=== PATIENT | male | born 1965 | race Caucasian/White ===

== ENCOUNTER 2016-07-06 16:40 | Emergency (ER) | payer OTHER ==
[~2016-07-06] VITALS: Ht 157.5 cm; Wt 54.0 kg
[2016-07-06 16:41] VITALS: BP 139/70; PULSE 94; RESP 20; TEMP 97.9; O2SAT 94
--- NOTE | 2016-07-06 18:44 | PD ---
HPI Chief Complaint: Medical Clearance Time Seen by Provider: 18:36 Travel History International Travel<30 days: No Contact w/Intl Traveler<30days: No Traveled to known affect area: No History of Present Illness HPI 51-year-old male with history of alcoholism, cirrhosis, ascites, had been seen by [facility] yesterday and had a paracentesis done, presents to the ER today because he states that there was a small amount drainage of clear fluid from the right abdomen paracentesis site today at 2 PM. He and his friends were worried and brought him in. He denies any increase in abdominal pain, fevers, or any other issues. Modifying Factors: None Associated Signs & Symptoms: Drainage from paracentesis site Risk Factors: Ascites PFSH Social History Alcohol Use: Yes Tobacco Use: Yes Allergies-Medications (Allergen,Severity, Reaction): Coded Allergies: Aspirin (Verified Allergy, Unknown, 07/06/16) HEP Reported Meds & Prescriptions Reported Meds & Active Scripts Active Reported Thiamine (Thiamine HCl) 100 Mg Tab 100 Mg PO DAILY Spironolactone 25 Mg Tab 75 Mg PO DAILY Xifaxan (Rifaximin) 550 Mg Tab 550 Mg PO Q12HR Propranolol (Propranolol HCl) 10 Mg Tab 10 Mg PO Q12HR Sm Nicotine Transdermal S (Nicotine) 14 Mg/24 Hr Dis 1 Patch TD DAILY Midodrine 5 Mg Tab 5 Mg PO TID Lactulose Liq (Lactulose) 10 Gm/15 Ml Soln 30 Ml PO Q8HR Furosemide 20 Mg Tab 20 Mg PO DAILY Folate (Folic Acid) 1 Mg Tab 1 Mg PO DAILY Chlordiazepoxide (Chlordiazepoxide HCl) 25 Mg Cap 25 Mg PO TID PRN Review of Systems Except as stated in HPI: all other systems reviewed are Neg Physical Exam Narrative GENERAL: Well-developed middle age male patient currently not in acute distress. SKIN: Focused skin assessment warm/dry. HEAD: Atraumatic. Normocephalic. EYES: Pupils equal and round. No scleral icterus. No injection or drainage. ENT: No nasal bleeding or discharge. Mucous membranes pink and moist. NECK: Trachea midline. No JVD. CARDIOVASCULAR: Regular rate and rhythm. No murmur appreciated. RESPIRATORY: No accessory muscle use. Clear to auscultation. Breath sounds equal bilaterally. GASTROINTESTINAL: Abdomen soft, non-tender, moderately distended. Hepatic and splenic margins not palpable. The right paracentesis site is covered by 2 x 2 gauze with Tegaderm. There is no surrounding erythema. There is no current drainage. There is no underlying fluctuance. MUSCULOSKELETAL: No obvious deformities. No clubbing. No cyanosis. No edema. NEUROLOGICAL: Awake and alert. No obvious cranial nerve deficits. Motor grossly within normal limits. Normal speech. PSYCHIATRIC: Appropriate mood and affect; insight and judgment normal. Data Data Last Documented VS Vital Signs Date Time Temp Pulse Resp B/P Pulse Ox O2 Delivery O2 Flow Rate FiO2 07/06/16 19:11 97 19 112/64 94 Room Air 07/06/16 16:41 97.9 MDM Medical Decision Making Medical Screen Exam Complete: Yes Emergency Medical Condition: Yes Medical Record Reviewed: Yes Differential Diagnosis Drainage from ascites drainage site Narrative Course Patient has no significant drainage at this time. It appears to be a small amount of serosanguineous drainage. No signs of infection. No significant bleeding at this time. I have talked to patient's friends who were concerned and they state that they had just picked him up from the hospital after being released today. He is post to follow up with GI doctor on July 18 and is supposed to be following up with a primary care physician once they find one. He has been discharged with Aldactone and Lasix which they have not yet picked up. At this point, patient does not appear to be in acute respiratory distress , is not having significant abdominal pain, and I do not see immediate emergency to do any further ascites drainage, patient has just had drainage yesterday. I have explained to patient's friend that he will need further medical management of his ascites and cirrhosis. Patient will need follow-up as an outpatient with his physicians. He should return for any worsening in bleeding, drainage, abdominal pain, fevers, or new symptoms as needed. They are concerned about coming the resources and pain for his prescriptions. I have tried to contact our case assistant's but there are none available at this time until 7 AM. I have referred him to [facility] as an option for primary care physician. The plan was discussed with the patient as well and he states understanding. Diagnosis Primary Impression: Ascites due to chronic alcoholic hepatitis Additional Impression: Encounter for wound re-check Referrals: [facility] Disposition: 01 DISCHARGE HOME Condition: Stable SoonthLeelee dominguez MD Jul 06, 2016 18:44
[2016-07-06] MEDS ORDERED: XIFA550T4 PO (19:02)
[2016-07-06] MEDS ORDERED: THIA100T PO (19:02)
[2016-07-06] MEDS ORDERED: FURO20TA PO (19:02)
[2016-07-06] MEDS ORDERED: SPIR25TA PO (19:02)
[2016-07-06] MEDS ORDERED: FOLI1TAB4 PO (19:02)
[2016-07-06] MEDS ORDERED: PROP10TA6 PO (19:02)
[2016-07-06] MEDS ORDERED: NICO1DIS TD (19:02)
[2016-07-06] MEDS ORDERED: CHLO25CA2 PO (19:02)
[2016-07-06] MEDS ORDERED: MIDO5TAB PO (19:02)
[2016-07-06] MEDS ORDERED: LACT10SO PO (19:02)
[2016-07-06 19:11] VITALS: BP 112/64; PULSE 97; RESP 19; O2SAT 94
== END 2016-07-07 02:32 | disposition home or self-care (01) ==
LOC: NEPC 16:40
DX: K70.11 Alcoholic hepatitis with ascites (principal); F10.20 Alcohol dependence, uncomplicated
CPT/HCPCS: 99282